=== PATIENT | female | born 1985 | race African-American/Black ===

== ENCOUNTER 2016-09-27 11:09 | Emergency (ER) | payer SELFPAY ==
[~2016-09-27] VITALS: Ht 165.1 cm; Wt 62.0 kg
[2016-09-27 11:13] VITALS: Ht 165.1 cm; Wt 62.0 kg
[2016-09-27] MEDS ORDERED: PRED20TA PO (12:07)
[2016-09-27] MEDS ORDERED: AMO500 PO (12:08)
--- NOTE | 2016-09-27 12:28 | ERD ---
ER Documentation Chief Complaint Date/Time DATE: 09/27/16 TIME: 12:22 Chief Complaint States sha has an allergic reaction from unknown source HPI Patient is a 31-year-old female who presents to the ED with right-sided throat pain and neck pain. She states that 2 days ago she ate, and developed pain the next morning to the right side of her throat. She states that she did have a smoothie in the morning 2 days ago which helped with her symptoms. However she states that the pain has gotten worse today. She complains of pain with swallowing and tongue pain as well as right sided cheek pain. Denies fever or chills. Denies abdominal pain, nausea, vomiting or diarrhea. Denies cough, shortness of breath or difficulty breathing. Denies shortness of breath, difficulty breathing or talking. She does state that her voice has changed due to the pain. Denies headache, vision changes or dizziness. She is not taking anything for her symptoms besides chlorhexidine. She does have multiple food allergies. ROS All systems reviewed and are negative except as per history of present illness. Medications Home Meds Active Scripts Amoxicillin* (Amoxicillin*) 500 Mg Cap, 500 MG PO TID for 7 Days, CAP Prov:PARISH VARGHESE PA-C 09/27/16 Prednisone* (Prednisone*) 20 Mg Tab, 40 MG PO DAILY for 3 Days, TAB Prov:PARISH VARGHESE PA-C 09/27/16 Allergies Allergies: Coded Allergies: Penicillins (Verified Allergy, Unknown, 09/27/16) aspirin (Verified Allergy, Unknown, 09/27/16) Uncoded Allergies: ASPIRIN,PCN (Allergy, Unknown, 09/27/16) PMhx/Soc History of Surgery: Yes (ear keloid removal) Anesthesia Reaction: No Hx Neurological Disorder: No Hx Respiratory Disorders: No Hx Cardiac Disorders: No Hx Psychiatric Problems: No Hx Miscellaneous Medical Probl: No Hx Alcohol Use: No Hx Substance Use: No Hx Tobacco Use: No Smoking Status: Never smoker Physical Exam Vitals Vital Signs Date Time Temp Pulse Resp B/P Pulse Ox O2 Delivery O2 Flow Rate FiO2 09/27/16 11:13 97.2 91 20 120/71 98 Physical Exam GENERAL: Well-developed, well-nourished female. Appears in no acute distress. HEAD: Normocephalic, atraumatic. EYES: Pupils are equally reactive bilaterally. EOMs grossly intact. No conjunctival erythema. ENT: Moist mucous membranes. No uvula deviation. No kissing tonsils. No exudates. Erythematous tonsils. No uvula deviation. No trismus or drooling. NECK: Supple. . No meningismus. negative kernig. negative brudinski. swollen right lymph node. LUNG: Clear to auscultation bilaterally. No rhonchi, wheezing, rales or coarse breath sounds. HEART: Regular rate and rhythm. No murmurs, rubs or gallops. NEUROLOGIC: Alert and oriented. Moving all four extremities. 5/5 strength in all extremities. Normal speech. Steady gait. SKIN: Normal color. Warm and dry. No rashes or lesions. Capillary refill < 2 seconds Results 24 hrs Current Medications Medications (Trade) Dose Ordered Sig/Carlin Route PRN Reason Start Time Stop Time Status Last Admin Dose Admin Prednisone (Prednisone) 40 mg ONCE ONCE PO 09/27/16 12:30 09/27/16 12:31 DC 09/27/16 12:24 Procedures/MDM ER COURSE: I kept the patient and/or family informed of laboratory and diagnostic imaging results throughout the emergency room course. MEDICATIONS: prednisone 40 mg in the ED. tolerated medication well with no adverse reaction. MEDICAL DECISION MAKING: This is a 31 year old female who presents with sore throat. Vital signs were reviewed. Patient is afebrile. Patient is not hypoxic. Patient is not toxic or ill appearing. I have consulted with Dr. Bailon who has examined the patient at bedside and agrees with plan. Patient has a sore throat likely apthous ulcer. Low suspicion for meningitis. Low suspicion for obstruction, peritonsillar abscess, strep pharyngitis, mononucleosis, dental abscess, retropharyngeal abscess. I have low suspicion for allergic reaction or anaphylaxis. Patient is speaking in full sentences and is not tripoding. Patient does not show signs of shortness of breath, tongue swelling or lip swelling, drooling or trismus, or angioedema. DISCHARGE: At this time, patient is stable for discharge and outpatient management with no new complaints during the ER course. Patient was sent home with prednisone and amoxicillin. Patient will be discharged home with instructions to recheck for new or worsening symptoms such as fever, nausea, weakness, LOC and to follow up with primary care in the next 1-2 days. Patient was advised to return to the ER for any new or worsening symptoms. Plan was discussed and patient and/or family understands and agrees. Home instructions were given. Departure Diagnosis: Primary Impression: Throat pain Condition: Stable Patient Instructions: When You Have a Sore Throat Referrals: COMMUNITY CLINICS YOU HAVE RECEIVED A MEDICAL SCREENING EXAM AND THE RESULTS INDICATE THAT YOU DO NOT HAVE A CONDITION THAT REQUIRES URGENT TREATMENT IN THE EMERGENCY DEPARTMENT. FURTHER EVALUATION AND TREATMENT OF YOUR CONDITION CAN WAIT UNTIL YOU ARE SEEN IN YOUR DOCTORS OFFICE WITHIN THE NEXT 1-2 DAYS. IT IS YOUR RESPONSIBILITY TO MAKE AN APPOINTMENT FOR FOLOW-UP CARE. IF YOU HAVE A PRIMARY DOCTOR --you should call your primary doctor and schedule an appointment IF YOU DO NOT HAVE A PRIMARY DOCTOR YOU CAN CALL OUR PHYSICIAN REFERRAL HOTLINE AT IF YOU CAN NOT AFFORD TO SEE A PHYSICIAN YOU CAN CHOSE FROM THE FOLLOWING [facility] CL[facility] [address] [facility] [address] [facility] [address] [facility] [address] [facility] [address] [facility]. [address] Additional Instructions: Call your primary care doctor TOMORROW for an appointment during the next 1-2 days.See the doctor sooner or return here if your condition worsens before your appointment time. PARISH VARGHESE PA-C Sep 27, 2016 12:28
[2016-09-27] MEDS ORDERED: predniSONE 20 MG TAB PO ONE (12:30)
== END 2016-09-27 12:50 | disposition home or self-care (01) ==
LOC: FTE 11:09
DX: R07.0 Pain in throat (principal)
CPT/HCPCS: 99284; J7512